=== PATIENT | female | born 1945 | race Two or more races ===

== ENCOUNTER → 2017-05-09 | Outpatient (CLI) | payer OTHER | END | disposition home or self-care (01) | LOC: PPH VACUNA 09:35 | DX: Z23 Encounter for immunization (principal) ==

== ENCOUNTER 2017-06-19 08:38 | Outpatient (CLI) | payer OTHER | END 2017-06-19 08:43 | disposition home or self-care (01) | LOC: SONOGRAMA 08:38 | DX: E03.8 Other specified hypothyroidism (principal); E07.89 Other specified disorders of thyroid ==

== ENCOUNTER 2017-11-10 15:37 | Emergency (ER) | payer OTHER ==
[~2017-11-10] VITALS: Ht 152.4 cm; Wt 63.5 kg
[2017-11-10] MEDS ORDERED: COZAAR25 MG (16:19)
[2017-11-10] MEDS ORDERED: SYNTHROID125 MCG (16:19)
[2017-11-10] MEDS ORDERED: XANAX XR0.5 MG (16:19)
[2017-11-10] MEDS ORDERED: ANTIVERT (16:20)
== END 2017-11-10 23:09 | disposition home or self-care (01) ==
LOC: ER 15:37
DX: R42 Dizziness and giddiness (principal)

== ENCOUNTER 2020-05-04 09:09 | Outpatient (CLI) | payer OTHER ==
[~2020-05-04 09:09] MED LIST: ANTIVERT; COZAAR25 MG; SYNTHROID125 MCG; XANAX XR0.5 MG
== END 2020-05-04 09:16 | disposition home or self-care (01) ==
LOC: RAD 09:09
PROVIDERS: ATTEND Internal Medicine Cardiovascular Disease
DX: K44.9 Diaphragmatic hernia without obstruction or gangrene (principal)

== ENCOUNTER → 2020-10-10 14:07 | Outpatient (CLI) | payer OTHER | END | disposition home or self-care (01) | LOC: NUCLEAR 13:30 | PROVIDERS: ATTEND Obstetrics & Gynecology Gynecology | DX: M85.80 Other specified disorders of bone density and structure, unspecified site (principal); M81.0 Age-related osteoporosis without current pathological fracture ==

== ENCOUNTER 2020-10-25 10:43 | Outpatient (CLI) | payer OTHER | END 2020-10-25 10:46 | disposition home or self-care (01) | LOC: RAD 10:43 | PROVIDERS: ATTEND General Practice | DX: M17.12 Unilateral primary osteoarthritis, left knee (principal); M25.562 Pain in left knee ==

== ENCOUNTER 2020-11-15 11:14 | Outpatient (CLI) | payer OTHER | END 2020-11-15 11:22 | disposition home or self-care (01) | LOC: RAD 11:14 | PROVIDERS: ATTEND Orthopaedic Surgery | DX: M25.562 Pain in left knee (principal); M25.561 Pain in right knee ==

== ENCOUNTER 2020-11-28 10:41 | Outpatient (CLI) | payer OTHER | END 2020-11-28 11:07 | disposition home or self-care (01) | LOC: MRI 10:41 | PROVIDERS: ATTEND Orthopaedic Surgery | DX: M17.12 Unilateral primary osteoarthritis, left knee (principal); M25.462 Effusion, left knee; M25.562 Pain in left knee | CPT/HCPCS: 73718 ==

== ENCOUNTER 2021-06-04 17:25 | Emergency (ER) | payer OTHER ==
[~2021-06-04] VITALS: Ht 152.4 cm; Wt 61.2 kg
[2021-06-04] MEDS ORDERED: NORVASC2.5 M1 PO (17:41)
[2021-06-04] MEDS ORDERED: PEPCID AC20 MG PO (21:48)
[2021-06-04] MEDS ORDERED: LEVSIN/SL0.125 MG SL (21:49)
== END 2021-06-04 21:52 | disposition home or self-care (01) ==
LOC: ER 17:25
DX: K80.50 Calculus of bile duct without cholangitis or cholecystitis without obstruction (principal); Z88.2 Allergy status to sulfonamides; I10 Essential (primary) hypertension

== ENCOUNTER 2021-06-11 08:15 | Outpatient (CLI) | payer OTHER ==
[~2021-06-11 08:15] MED LIST changes: +LEVSIN/SL0.125 MG SL; +NORVASC2.5 M1 PO; +PEPCID AC20 MG PO
== END 2021-06-11 08:18 | disposition home or self-care (01) ==
LOC: TOM 08:15
PROVIDERS: ATTEND Internal Medicine Gastroenterology
DX: R10.84 Generalized abdominal pain (principal); K44.9 Diaphragmatic hernia without obstruction or gangrene

== ENCOUNTER 2021-07-04 08:03 | Outpatient (CLI) | payer OTHER | END 2021-07-04 08:04 | disposition home or self-care (01) | LOC: NUCLEAR 08:03 | PROVIDERS: ATTEND Internal Medicine Gastroenterology | DX: K80.50 Calculus of bile duct without cholangitis or cholecystitis without obstruction (principal) ==

== ENCOUNTER 2021-08-07 19:11 | Emergency (ER) | payer OTHER ==
[~2021-08-07] VITALS: Ht 152.4 cm; Wt 52.2 kg
[2021-08-07] MEDS ORDERED: TOPROL XL25 M1 PO (19:25)
[2021-08-07] MEDS ORDERED: TIROSINT112 MCG PO (19:26)
== END 2021-08-07 22:09 | disposition home or self-care (01) ==
LOC: ER 19:11
DX: K29.60 Other gastritis without bleeding (principal); E03.9 Hypothyroidism, unspecified; Z88.2 Allergy status to sulfonamides

== ENCOUNTER 2022-06-20 08:52 | Outpatient (CLI) | payer OTHER ==
[~2022-06-20 08:52] MED LIST changes: +TIROSINT112 MCG PO; +TOPROL XL25 M1 PO
== END 2022-06-20 08:59 | disposition home or self-care (01) ==
LOC: TOM 08:52
PROVIDERS: ATTEND Internal Medicine Gastroenterology
DX: K40.90 Unilateral inguinal hernia, without obstruction or gangrene, not specified as recurrent (principal)

== ENCOUNTER 2022-10-10 08:44 | Outpatient (CLI) | payer OTHER | END 2022-10-10 08:53 | disposition home or self-care (01) | LOC: RX STUDY 08:44 | PROVIDERS: ATTEND Surgery | DX: K44.9 Diaphragmatic hernia without obstruction or gangrene (principal) ==

== ENCOUNTER 2022-10-24 13:49 | Outpatient (CLI) | payer OTHER | END 2022-10-24 13:56 | disposition home or self-care (01) | LOC: NUCLEAR 13:49 | DX: M85.80 Other specified disorders of bone density and structure, unspecified site (principal) ==

== ENCOUNTER 2022-11-18 08:03 | Outpatient (CLI) | payer OTHER | END 2022-11-18 08:06 | disposition home or self-care (01) | LOC: RAD 08:03 | DX: I25.118 Atherosclerotic heart disease of native coronary artery with other forms of angina pectoris (principal) ==

== ENCOUNTER 2023-05-23 10:33 | Outpatient (CLI) | payer OTHER | END 2023-05-23 10:41 | disposition home or self-care (01) | LOC: RAD 10:33 | PROVIDERS: ATTEND Family Medicine | DX: M25.462 Effusion, left knee (principal) ==

== ENCOUNTER 2023-06-17 16:17 | Inpatient (IN) | payer OTHER ==
[~2023-06-17] VITALS: Ht 152.4 cm; Wt 59.0 kg
[2023-06-17] MEDS ORDERED: LOTENSIN20 MG PO (16:50)
[2023-06-17] MEDS ORDERED: CARTIA XT120 MG PO (16:50)
[2023-06-17] MEDS ORDERED: 0.9 % SODIUM CHLORIDE 1,000 ML IV STA (17:53)
[2023-06-17 19:14] LABS: HEMATOCRIT 36.1 % (36.0-45.00); HEMOGLOBIN 12.5 g/dL (12.0-15.00); MEAN CELL VOLUME 89.6 fL (80.00-100.00); MEAN CORPUSCULAR HEMOGLOBIN 31.1 pg (27.00-32.0); MEAN CORPUSCULAR HGB CONC 34.7 g/dl (32.0-36.0); PLATELET COUNT 306 K/uL (150-450); RED BLOOD COUNT 4.03 M/uL (4.00-6.00); RED CELL DISTRIBUTION WIDTH 13.5 % (11.5-14.5)
[2023-06-17 19:20] LABS: ALBUMIN 3.4 gm/dL (3.4-5.0); BILIRUBIN TOTAL 0.37 mg/dL (0.3-1.2); CALCIUM 9.3 mg/dL (8.5-10.1); CREATININE SERUM 0.68 mg/dL (0.55-1.02); GFR 83.68; GLOBULINA 4.6 G/DL (2.4-3.5); POTASSIUM 3.47 mEq/L (3.5-5.1)
[2023-06-17] MEDS ORDERED: ENALAPRILAT DIHYDRATE 1.25 MG/ML VIAL IV STA ×2 (20:18→22:26)
[2023-06-18] MEDS ORDERED: DEXAMETHASONE SODIUM PHOSPHATE 4 MG/ML VIAL IV STA (14:22)
[2023-06-18 15:20] LABS: URINE APPEARANCE Cloudy; URINE BILIRRUBIN Negative (NEGATIVE); URINE BLOOD Negative; URINE COLOR Yellow; URINE GLUCOSE Negative (NEGATIVE); URINE LEUKOCYTE Small; URINE NITRATE Negative; URINE PROTEIN 30 (NEGATIVE); URINE UROBILINOGEN 0.2 E.U./dl
[2023-06-18 15:24] LABS: URINE BACTERIA 1833.2 uL (0.0-1933); URINE EPITHELIAL CELLS 71.2 uL (0.0-38.8); URINE WBC 30.9 uL (0.0-23.2)
[2023-06-18 16:03] LABS: URINE CRYSTALS NEGATIVE /HPF; URINE MUCUS SCANT; URINE YEAST NEGATIVE /hpf
[2023-06-18] MEDS ORDERED: LABETALOL HCL 20MG/4ML SYRINGE IV ONE (18:00)
[2023-06-18] MEDS ORDERED: ATORVASTATIN CALCIUM 40 MG TABLET PO SCH (18:10)
[2023-06-18] MEDS ORDERED: CLOPIDOGREL BISULFATE 75 MG TABLET PO SCH (18:12)
[2023-06-18] MEDS ORDERED: 0.9 % SODIUM CHLORIDE 1,000 ML IV SCH (18:15)
[2023-06-18] MEDS ORDERED: ONDANSETRON HCL 4 MG in 0.9 % SODIUM CHLORIDE 50 ML IV PRN (18:15)
[2023-06-18 19:25] LABS: INR 1.04; PARTIAL THROMBOPLASTIN TIME 28.7 SECONDS (22.0-34.0); PROTHROMBIN TIME 10.9 SECONDS (9.0-11.5)
[2023-06-19] MEDS ORDERED: DILTIAZEM HCL 120 MG CAP.SR.24H PO SCH (09:00)
[2023-06-19] MEDS ORDERED: LOSARTAN POTASSIUM 50 MG TABLET PO SCH (09:00)
[2023-06-19] MEDS ORDERED: FAMOTIDINE/PF 20 MG in 0.9 % SODIUM CHLORIDE 8 ML IV PUSH SCH (09:00)
[2023-06-19] MEDS ORDERED: METOPROLOL SUCCINATE 25 MG TAB.SR.24H PO SCH (09:00)
[2023-06-19] MEDS ORDERED: PREMARIN30 GM (16:32)
[2023-06-19] MEDS ORDERED: FLUOCINOLONE AC20 ML (16:32)
[2023-06-19] MEDS ORDERED: ESTRADIOL42.5 GM (16:32)
[2023-06-19] MEDS ORDERED: BENAZEPRIL HCL40 MG (16:33)
[2023-06-20] MEDS ORDERED: LEVOTHYROXINE SODIUM 112 MCG TABLET PO SCH (06:00)
[2023-06-20] MEDS ORDERED: LOSARTAN POTASSIUM 50 MG,LOSARTAN POTASSIUM 25 MG PO SCH (09:00)
[2023-06-20] MEDS ORDERED: APIXABAN 5 MG TABLET PO SCH (09:00)
== END 2023-06-21 12:45 | disposition home or self-care (01) | DRG 66 ==
LOC: ER 16:18 → SEC-K 06-18 19:15 → MEDJ 06-19 06:44
PROVIDERS: General Practice; ADMIT Internal Medicine; ATTEND Internal Medicine
PROC: B020ZZZ Computerized Tomography (CT Scan) of Brain (ICD-10-PCS; 2023-06-16)
PROC: 4A12X4Z Monitoring of Cardiac Electrical Activity, External Approach (ICD-10-PCS; principal; 2023-06-17)
PROC: B030ZZZ Magnetic Resonance Imaging (MRI) of Brain (ICD-10-PCS; 2023-06-17)
PROC: B345ZZZ Ultrasonography of Bilateral Common Carotid Arteries (ICD-10-PCS; 2023-06-18)
PROC: B348ZZZ Ultrasonography of Bilateral Internal Carotid Arteries (ICD-10-PCS; 2023-06-18)
PROC: B246ZZZ Ultrasonography of Right and Left Heart (ICD-10-PCS; 2023-06-18)
DX: I63.432 Cerebral infarction due to embolism of left posterior cerebral artery (principal); I10 Essential (primary) hypertension; I48.0 Paroxysmal atrial fibrillation; M62.81 Muscle weakness (generalized); R42 Dizziness and giddiness; E03.9 Hypothyroidism, unspecified; Z74.01 Bed confinement status; Z88.2 Allergy status to sulfonamides
CPT/HCPCS: 70551

== ENCOUNTER 2024-01-13 11:36 | Outpatient (CLI) | payer OTHER ==
[~2024-01-13 11:36] MED LIST changes: +BENAZEPRIL HCL40 MG; +CARTIA XT120 MG PO; +ESTRADIOL42.5 GM; +FLUOCINOLONE AC20 ML; +LOTENSIN20 MG PO; +PREMARIN30 GM
== END 2024-01-13 11:40 | disposition home or self-care (01) ==
LOC: RAD 11:36
PROVIDERS: ATTEND Internal Medicine
DX: M17.12 Unilateral primary osteoarthritis, left knee (principal)

== ENCOUNTER 2024-02-05 13:16 | Outpatient (CLI) | payer OTHER | END 2024-02-05 13:21 | disposition home or self-care (01) | LOC: SONOGRAMA 13:16 | DX: R10.2 Pelvic and perineal pain (principal) ==

== ENCOUNTER 2024-02-17 11:12 | Outpatient (CLI) | payer OTHER | END 2024-02-17 11:14 | disposition home or self-care (01) | LOC: RAD 11:12 | PROVIDERS: ATTEND Physical Medicine & Rehabilitation | DX: M17.11 Unilateral primary osteoarthritis, right knee (principal); M25.561 Pain in right knee; M16.12 Unilateral primary osteoarthritis, left hip ==

== ENCOUNTER 2024-02-23 14:35 | Outpatient (CLI) | payer OTHER | END 2024-02-23 14:56 | disposition home or self-care (01) | LOC: MRI 14:35 | PROVIDERS: ATTEND Family Medicine | DX: M24.152 Other articular cartilage disorders, left hip (principal) | CPT/HCPCS: 73723 ==

== ENCOUNTER 2024-04-14 11:06 | Outpatient (CLI) | payer OTHER | END 2024-04-14 11:17 | disposition home or self-care (01) | LOC: MRI 11:06 | PROVIDERS: ATTEND Psychiatry & Neurology Clinical Neurophysiology | DX: G40.309 Generalized idiopathic epilepsy and epileptic syndromes, not intractable, without status epilepticus (principal) | CPT/HCPCS: 70551 ==

== ENCOUNTER 2024-09-28 10:20 | Outpatient (CLI) | payer OTHER | END 2024-09-28 10:23 | disposition home or self-care (01) | LOC: SONOGRAMA 10:20 | DX: E03.9 Hypothyroidism, unspecified (principal); E04.1 Nontoxic single thyroid nodule ==

== ENCOUNTER 2025-01-17 12:48 | Outpatient (CLI) | payer OTHER | END 2025-01-17 13:04 | disposition home or self-care (01) | LOC: MRI 12:48 | DX: M75.101 Unspecified rotator cuff tear or rupture of right shoulder, not specified as traumatic (principal) | CPT/HCPCS: 73221 ==